=== PATIENT | female | born 1955 | race Caucasian/White ===

== ENCOUNTER 2025-01-19 07:08 | Day surgery (SDC) | payer BC, MEDICARE ==
[2025-01-19] MEDS ORDERED: Lactated Ringers 1,000 ML IV ONE (07:09)
[2025-01-19] MEDS ORDERED: Propofol 200 MG/20 ML SDV IV ONE (07:09)
[2025-01-19] MEDS: Lactated Ringers 1,000 ML IV SCH (07:44)
[2025-01-19] MEDS ORDERED: Propofol 200 MG/20 ML SDV ONE (09:40)
[2025-01-19 10:14] VITALS: BP 132/70; PULSE 76
== END 2025-01-19 10:18 | disposition home or self-care (01) ==
LOC: DL.ENDO 07:08
PROVIDERS: ATTEND Internal Medicine Gastroenterology
DX: Z12.11 Encounter for screening for malignant neoplasm of colon (principal); D12.2 Benign neoplasm of ascending colon; K64.8 Other hemorrhoids; K57.30 Diverticulosis of large intestine without perforation or abscess without bleeding; R19.5 Other fecal abnormalities; Z86.0100 Personal history of colon polyps, unspecified; Z79.899 Other long term (current) drug therapy
CPT/HCPCS: 00811; 45385; 88305; 99100; J2704; J7120